=== PATIENT | female | born 1975 | race Caucasian/White ===

== ENCOUNTER 2019-01-30 14:13 | Inpatient (IN) ==
[2019-01-30] MEDS ORDERED: TUSSIONEX PENNKINETIC SUSP PO PRN (14:48)
--- NOTE | 2019-01-30 14:51 | DR.H&P ---
H&P - History & Physical for Day of: H&P Date: 01/30/19 - Chief Complaint Chief Complaint: SOB, Palpitations - History of Present Illness History of Present Illness: the patient is a 43-year-old white female who presents back to the office with complaint of increased shortness of breath with palpitations. States she feels shaky and is wheezing. Does continue to have dyspnea on simple exertion. Patient has had upper respiratory infection 2 weeks. Has been on antibiotics and yesterday was started on by mouth Levaquin 750 mg, prednisone and Xopenex nebulizer treatments. States that insurance is pending on Xopenex and patient has been doing albuterol nebs. Patient states she feels weak. Denies fever. Has nonproductive cough. - Past Medical History Past Medical History: COPD - Past Surgical History Surgical History: Hysterectomy, Other Additional Surgical History: Hernia repair - Family History Family Medical History: Diabetes Mellitus, Hypertension - Social History Does patient currently use any type of tobacco product: Yes Have you used tobacco products in the last 12 months: Yes Type of Tobacco Use: Cigarettes Does any household member use tobacco: No Alcohol Use: None Drug Use: None Risks, benefits, and alternatives of opioids discussed: No Prescription drug monitoring program results: PDMP reviewed and no concerns identified - Review of Systems Constitutional: Weakness, Malaise Eyes: No Symptoms Reported ENT: No Symptoms Reported Respiratory: Cough, SOB with Excertion, Pleuritic Pain, Wheezing Cardiovascular: No Symptoms Reported Gastrointestinal: No Symptoms Reported Genitourinary: No Symptoms Reported Musculoskeletal: No Symptoms Reported Skin: No Symptoms Reported Neurological: No Symptoms Reported Oriented: Normal Eyes: Normal Ear: Normal Nose: Normal Throat: Normal Respiratory: Rhonchi Throughout, Wheezes Throughout Cardiovascular: Normal : Normal Auscultation: Bowel Sounds: Normal Palpation: Normal Tenderness: Normal Skin: Normal Musculoskeletal: Normal Psychiatric: Normal Mood Description: Calm Affect: Normal Speech Pattern: Clear - Assessment/Plan (1) Acute bronchitis with COPD Status: Acute Plan: Labs, CXR, Xopenex inhaler, IV Levaquin - Allergies Allergies/Adverse Reactions: Allergies Allergy/AdvReac Type Severity Reaction Status Date / Time No Known Drug Allergies Allergy Verified 01/30/19 15:51
[2019-01-30 15:37] LABS: BASOPHILS # (AUTO) 0.1 X10^3/uL (0.0-0.1); BASOPHILS % (AUTO) 0.8 % (0.2-1.0); HEMATOCRIT 36.5 % (36.0-47.0); HEMOGLOBIN 12.3 g/dL (12.0-16.0); LYMPHOCYTES # (AUTO) 1.3 X10^3/uL (1.3-2.9); MEAN CORPUSCULAR HGB CONC 33.7 g/dL (33.0-35.0); MEAN CORPUSCULAR VOLUME 88.9 fL (80.0-100.0); MEAN PLATELET VOLUME 7.5 fL (7.4-11.0); MONOCYTES # (AUTO) 0.6 x10^3/uL (0.3-0.8); MONOCYTES % (AUTO) 4.4 % (0.0-13.0); NEUTROPHILS # (AUTO) 10.8 x10^3/uL (2.2-4.8); NEUTROPHILS % (AUTO) 84.8 % (42.0-75.0); PLATELET COUNT 244 X10^3/uL (150.0-450.0); RED BLOOD COUNT 4.11 X10^6/uL (3.5-5.4); RED CELL DISTRIBUTION WIDTH 13.4 % (11.6-16.5); WHITE BLOOD COUNT 12.8 X10^3/uL (3.6-10.0)
[2019-01-30 15:48] LABS: ALBUMIN 4.1 g/dL (3.4-5.0); ALKALINE PHOSPHATASE 64 Units/L (46-116); ASPARTATE AMINO TRANSFERASE 22 Units/L (15-37); BLOOD UREA NITROGEN 7 mg/dL (7-18); CALCIUM 8.6 mg/dL (8.5-10.1); CARBON DIOXIDE 24.9 mmol/L (21-32); CHLORIDE 104 mmol/L (98-107); COR NA(FOR HYPERGLY) 141 mmol/L (136-145); CREATININE 0.98 mg/dL (0.55-1.02); SODIUM 141 mmol/L (136-145); TOTAL PROTEIN 7.6 g/dL (6.4-8.2); eGFR NON BLACK RACES > 60 (>60)
[2019-01-30] MEDS ORDERED: POTASSIUM CHL 40 MEQ/NS 0.45% 500 ML IV PRN (15:58)
[2019-01-30] MEDS ORDERED: K-RIDER 10 MEQ/NS 100 ML 10 MEQ/100 ML BAG IV PRN (15:58)
[2019-01-30] MEDS ORDERED: POTASSIUM CHL 60 MEQ/NS 0.45% 500 ML IV PRN (15:58)
[2019-01-30] MEDS ORDERED: POTASSIUM CHLORIDE LIQ 20 MEQ UDC PO PRN (15:58)
[2019-01-30] MEDS ORDERED: K-DUR TAB 20 MEQ PO PRN (15:58)
[2019-01-30] MEDS ORDERED: MAGNESIUM SULFATE 1 GRAM/100 mL PREMIX 1 GM/100 ML BAG IV PRN (15:58)
[2019-01-30] MEDS ORDERED: KLOR-CON PO PRN (15:58)
[2019-01-30] MEDS ORDERED: MICRO K EXTEN CAP 10 MEQ PO PRN (15:58)
[2019-01-30 16:09] LABS: ALANINE AMINOTRANSFERASE 19 Units/L (12-78)
--- NOTE | 2019-01-30 16:13 | RAD ---
History: Shortness of breath and wheezing for 1 month Study: PA and lateral chest Comparison: None Findings: The lungs are clear and the heart and mediastinum are unremarkable. There is no edema or effusion or congestion. There is mild compression of T7 or T8. Impression: 1. No evidence for acute cardiopulmonary disease 2. Mild compression fracture in the midthoracic spine of unknown age Reported By:
[2019-01-30] MEDS ORDERED: SALINE 3% 15 ML NEB TX NEB ONE (16:24)
[2019-01-30] MEDS: XOPENEX 1.25 MG/3 ML NEBULE NEB SCH ×2 (16:32→21:22)
[2019-01-30] MEDS ORDERED: NS 1/2 1000 ML IV 1,000 ML ONE (16:50)
[2019-01-30] MEDS: NS 1/2 1000 ML IV 1,000 ML IV SCH (17:08)
[2019-01-30] MEDS: ROBITUSSIN DM PO SCH ×2 (17:09→21:27)
[2019-01-30] MEDS: LEVAQUIN PREMIX IV 750 MG 750 MG/150 ML BAG IV SCH (17:09)
[2019-01-30 18:44] VITALS: BMI 23.8
[2019-01-30] MEDS: MILK OF MAGNESIA PO SCH (21:27)
[2019-01-30] MEDS: COLACE CAP 100 MG PO SCH (21:27)
[2019-01-30] MEDS: NICOTINE PATCH TD SCH (22:09)
[2019-01-31] MEDS ORDERED: NS 1/2 1000 ML IV 1,000 ML ONE ×2 (02:10→23:31)
[2019-01-31 05:38] LABS: BASOPHILS % (AUTO) 0.6 % (0.2-1.0); EOSINOPHILS % (AUTO) 0.2 % (0.9-2.9); HEMATOCRIT 32.7 % (36.0-47.0); HEMOGLOBIN 11.3 g/dL (12.0-16.0); LYMPHOCYTES % (AUTO) 30.9 % (21.0-51.0); MEAN CORPUSCULAR HEMOGLOBIN 30.8 pg (27.0-34.0); MEAN CORPUSCULAR HGB CONC 34.5 g/dL (33.0-35.0); MEAN CORPUSCULAR VOLUME 89.4 fL (80.0-100.0); MONOCYTES # (AUTO) 0.4 x10^3/uL (0.3-0.8); NEUTROPHILS # (AUTO) 4.1 x10^3/uL (2.2-4.8); NEUTROPHILS % (AUTO) 62.3 % (42.0-75.0); PLATELET COUNT 189 X10^3/uL (150.0-450.0); RED BLOOD COUNT 3.66 X10^6/uL (3.5-5.4); RED CELL DISTRIBUTION WIDTH 13.4 % (11.6-16.5); WHITE BLOOD COUNT 6.6 X10^3/uL (3.6-10.0)
[2019-01-31 05:58] LABS: ALANINE AMINOTRANSFERASE 14 Units/L (12-78); ALBUMIN 3.1 g/dL (3.4-5.0); ALKALINE PHOSPHATASE 48 Units/L (46-116); ASPARTATE AMINO TRANSFERASE 17 Units/L (15-37); BLOOD UREA NITROGEN 8 mg/dL (7-18); CALCIUM 7.7 mg/dL (8.5-10.1); CARBON DIOXIDE 26.3 mmol/L (21-32); CHLORIDE 107 mmol/L (98-107); COR CA(FOR HYPOALB) 8.4 mg/dL (8.5-10.1); CREATININE 0.77 mg/dL (0.55-1.02); SODIUM 141 mmol/L (136-145); eGFR NON BLACK RACES > 60 (>60)
[2019-01-31] MEDS: NS 1/2 1000 ML IV 1,000 ML IV SCH ×3 (06:40→23:36)
[2019-01-31] MEDS: XOPENEX 1.25 MG/3 ML NEBULE NEB SCH ×4 (08:25→21:01)
[2019-01-31] MEDS: LEVAQUIN PREMIX IV 750 MG 750 MG/150 ML BAG IV SCH (08:27)
[2019-01-31] MEDS: NICOTINE PATCH TD SCH (08:28)
[2019-01-31] MEDS: ROBITUSSIN DM PO SCH ×4 (08:32→20:29)
[2019-01-31] MEDS ORDERED: PREVNAR 13 IM ONE (09:00)
[2019-01-31] MEDS: TOPROL XL PO SCH (09:52)
[2019-01-31] MEDS: ZOLOFT PO SCH ×2 (09:52→20:28)
[2019-01-31] MEDS: PROTONIX INJ 40 MG VIAL IVP SCH (10:23)
[2019-01-31] MEDS: SOLU-Medrol 125 MG VIAL IVP SCH ×3 (10:23→21:10)
[2019-01-31] MEDS: CARAFATE ORAL SUSP PO SCH ×3 (12:57→20:29)
--- NOTE | 2019-01-31 13:20 | CT ---
History: Shortness of breath and wheezing for 1 month Study: CT chest utilizing 100 mL Omnipaque 350 IV contrast. Sagittal and coronal reformations were provided. Axial MIPS were performed. Dose reduction techniques were utilized. Comparison: None Findings: The lungs are grossly clear except for a 1 cm nodule at the left lung base with central calcification. There is no pleural effusion. There is no lung consolidation. There is no adenopathy. There is no pericardial effusion. No pulmonary embolus is demonstrated. The aorta is unremarkable. The partially visualized upper abdomen is unremarkable. There is mild anterior wedging of the superior endplate of T7. There are mild T7-8 and T8-9 degenerative osteophytes. Impression: 1. 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 Mild T7 compression fracture, probably old 3. No acute cardiopulmonary disease demonstrated Reported By:
[2019-01-31] MEDS: COLACE CAP 100 MG PO SCH (20:28)
[2019-01-31] MEDS: MILK OF MAGNESIA PO SCH (20:29)
[2019-02-01] MEDS: CARAFATE ORAL SUSP PO SCH (05:47)
[2019-02-01] MEDS: SOLU-Medrol 125 MG VIAL IVP SCH (05:47)
[2019-02-01 06:15] LABS: BASOPHILS % (AUTO) 0.1 % (0.2-1.0); HEMATOCRIT 35.8 % (36.0-47.0); HEMOGLOBIN 12.3 g/dL (12.0-16.0); LYMPHOCYTES # (AUTO) 0.8 X10^3/uL (1.3-2.9); LYMPHOCYTES % (AUTO) 7.7 % (21.0-51.0); MEAN CORPUSCULAR HEMOGLOBIN 30.5 pg (27.0-34.0); MEAN CORPUSCULAR HGB CONC 34.3 g/dL (33.0-35.0); MEAN CORPUSCULAR VOLUME 88.9 fL (80.0-100.0); MEAN PLATELET VOLUME 7.5 fL (7.4-11.0); MONOCYTES # (AUTO) 0.4 x10^3/uL (0.3-0.8); MONOCYTES % (AUTO) 4.1 % (0.0-13.0); NEUTROPHILS # (AUTO) 9.1 x10^3/uL (2.2-4.8); NEUTROPHILS % (AUTO) 88.1 % (42.0-75.0); PLATELET COUNT 227 X10^3/uL (150.0-450.0); RED BLOOD COUNT 4.03 X10^6/uL (3.5-5.4); RED CELL DISTRIBUTION WIDTH 13.6 % (11.6-16.5); WHITE BLOOD COUNT 10.3 X10^3/uL (3.6-10.0)
[2019-02-01 06:29] LABS: ALANINE AMINOTRANSFERASE 18 Units/L (12-78); ALBUMIN 3.8 g/dL (3.4-5.0); ALKALINE PHOSPHATASE 59 Units/L (46-116); ASPARTATE AMINO TRANSFERASE 15 Units/L (15-37); BLOOD UREA NITROGEN 7 mg/dL (7-18); CALCIUM 8.8 mg/dL (8.5-10.1); CARBON DIOXIDE 24.3 mmol/L (21-32); CHLORIDE 103 mmol/L (98-107); COR NA(FOR HYPERGLY) 138 mmol/L (136-145); CREATININE 0.75 mg/dL (0.55-1.02); SODIUM 137 mmol/L (136-145); eGFR NON BLACK RACES > 60 (>60)
[2019-02-01] MEDS: XOPENEX 1.25 MG/3 ML NEBULE NEB SCH (08:59)
[2019-02-01] MEDS: LEVAQUIN PREMIX IV 750 MG 750 MG/150 ML BAG IV SCH (09:18)
[2019-02-01] MEDS: NS 1/2 1000 ML IV 1,000 ML IV SCH (09:18)
[2019-02-01] MEDS: NICOTINE PATCH TD SCH (09:18)
[2019-02-01] MEDS: PROTONIX INJ 40 MG VIAL IVP SCH (09:19)
[2019-02-01] MEDS: TOPROL XL PO SCH (09:19)
[2019-02-01] MEDS: ZOLOFT PO SCH (09:19)
[2019-02-01] MEDS: ROBITUSSIN DM PO SCH (09:19)
[2019-02-01 12:05] VITALS: BP 125/56
== END 2019-02-01 11:55 | disposition home or self-care (01) | DRG 203 ==
LOC: MED/SURG 15:09
PROVIDERS: ADMIT Internal Medicine; ATTEND Internal Medicine
DX: R06.02 Shortness of breath; K21.9 Gastro-esophageal reflux disease without esophagitis; Z23 Encounter for immunization; J20.8 Acute bronchitis due to other specified organisms; F41.8 Other specified anxiety disorders; J44.9 Chronic obstructive pulmonary disease, unspecified
CPT/HCPCS: 36415; 71020; 71046; 71260; 80053; 83735; 84132; 85025; 87040; 87070; 87205; 94640; 94760; A4222; C9113; 90670; J1956; J2930

== ENCOUNTER 2019-03-25 16:13 | Observation (INO) ==
[2019-03-25] MEDS ORDERED: TUSSIONEX PENNKINETIC SUSP PO PRN (17:12)
--- NOTE | 2019-03-25 17:16 | DR.H&P ---
H&P - History & Physical for Day of: H&P Date: 03/25/19 - Chief Complaint Chief Complaint: Cough, Congestion and SOB - History of Present Illness History of Present Illness: The patient is a 43-year-old white female who presents to the office secondary to complaints of cough and congestion shortness of breath. Patient states cough is congested but is not able to cough anything up. States she has been running fevers at home. States that she is using inhalers but is unable to tolerate the albuterol due to tachycardia. Patient denies sinus congestion. Does state that she seldom smokes or vapes. Does state while he was talking will increase her shortness of breath and coughing.Does complain of seeing blood in the urine. States she is having lower abdominal pain with increased discomfort and difficulty with urination. Does state that sex is painful. Urinalysis is showing positive for 2+ blood. Patient was previously treated with clindamycin for vaginal BV with minimal improvement of symptoms. - Past Medical History Past Medical History: COPD - Past Surgical History Surgical History: Hysterectomy, Other Additional Surgical History: Hernia repair - Family History Family Medical History: Diabetes Mellitus, Hypertension - Social History Does patient currently use any type of tobacco product: Yes Have you used tobacco products in the last 12 months: Yes Type of Tobacco Use: Cigarettes Does any household member use tobacco: Yes Alcohol Use: None Drug Use: None Risks, benefits, and alternatives of opioids discussed: Yes Prescription drug monitoring program results: PDMP reviewed and no concerns identified - Medications Home Medications: No Known Drug Allergies Allergy (Verified 01/30/19 15:51) CONTINUE taking the following medications estradiol 2 mg PO DAILY 03/25/19 [History] levothyroxine 25 mcg PO DAILY 03/25/19 [History] paroxetine HCl 10 mg PO DAILY 03/25/19 [History] - Review of Systems Constitutional: Malaise Eyes: No Symptoms Reported ENT: No Symptoms Reported Respiratory: Cough, SOB with Excertion, Pleuritic Pain, Wheezing Cardiovascular: No Symptoms Reported Gastrointestinal: No Symptoms Reported Genitourinary: No Symptoms Reported Musculoskeletal: No Symptoms Reported Skin: No Symptoms Reported Neurological: No Symptoms Reported - Physical Exam Vital Signs: Blood Pressure [Right Arm] 125/56 Oriented: Normal Eyes: Normal Ear: Normal Nose: Normal Throat: Normal Respiratory: Rhonchi Throughout, Wheezes Throughout Cardiovascular: Tachycardia : Normal Auscultation: Bowel Sounds: Normal Palpation: Normal Tenderness: Normal Skin: Normal Musculoskeletal: Normal Psychiatric: Normal Mood Description: Calm Affect: Normal Speech Pattern: Clear - Assessment/Plan (1) COPD with acute exacerbation Status: Acute Plan: CXR, IV Antibiotics, Steroids, NEbs (2) Acute bronchitis with COPD Status: Acute Plan: CXR, IV Antibiotics, Steriods, Nebs - Allergies Allergies/Adverse Reactions: Allergies Allergy/AdvReac Type Severity Reaction Status Date / Time No Known Drug Allergies Allergy Verified 01/30/19 15:51
[2019-03-25] MEDS ORDERED: NS 1/2 1000 ML IV 1,000 ML IV ONE (17:27)
[2019-03-25] MEDS ORDERED: ROCEPHIN VIAL 1 GRAM ONE (17:28)
[2019-03-25] MEDS: NS 1/2 1000 ML IV 1,000 ML IV SCH (17:30)
[2019-03-25] MEDS: ROCEPHIN VIAL 1 GRAM 1 G in NS 100 ML IV + SPIKE MINIBAG* 100 ML IV SCH (17:30)
[2019-03-25 17:41] VITALS: BMI 24.1
[2019-03-25 18:01] LABS: BASOPHILS % (AUTO) 0.6 % (0.2-1.0); EOSINOPHILS # (AUTO) 0.1 x10^3/uL (0.0-0.2); EOSINOPHILS % (AUTO) 1.1 % (0.9-2.9); HEMATOCRIT 35.6 % (36.0-47.0); HEMOGLOBIN 12.4 g/dL (12.0-16.0); LYMPHOCYTES # (AUTO) 2.1 X10^3/uL (1.3-2.9); MEAN CORPUSCULAR HEMOGLOBIN 30.5 pg (27.0-34.0); MEAN CORPUSCULAR HGB CONC 34.8 g/dL (33.0-35.0); MEAN CORPUSCULAR VOLUME 87.8 fL (80.0-100.0); MEAN PLATELET VOLUME 7.1 fL (7.4-11.0); MONOCYTES # (AUTO) 0.4 x10^3/uL (0.3-0.8); MONOCYTES % (AUTO) 5.4 % (0.0-13.0); NEUTROPHILS % (AUTO) 60.9 % (42.0-75.0); PLATELET COUNT 270 X10^3/uL (150.0-450.0); RED BLOOD COUNT 4.06 X10^6/uL (3.5-5.4); RED CELL DISTRIBUTION WIDTH 12.9 % (11.6-16.5); WHITE BLOOD COUNT 6.6 X10^3/uL (3.6-10.0)
[2019-03-25 18:13] LABS: ALANINE AMINOTRANSFERASE 23 Units/L (12-78); ALKALINE PHOSPHATASE 66 Units/L (46-116); ASPARTATE AMINO TRANSFERASE 16 Units/L (15-37); BLOOD UREA NITROGEN 8 mg/dL (7-18); CALCIUM 8.7 mg/dL (8.5-10.1); CARBON DIOXIDE 26.3 mmol/L (21-32); CHLORIDE 103 mmol/L (98-107); SODIUM 139 mmol/L (136-145); TOTAL PROTEIN 7.2 g/dL (6.4-8.2); eGFR NON BLACK RACES > 60 (>60)
[2019-03-25] MEDS: XOPENEX 1.25 MG/3 ML NEBULE NEB SCH (18:38)
--- NOTE | 2019-03-25 19:32 | RAD ---
History: Cough Exam: Portable chest Comparison: 01/30/2019 Technique: A portable AP chest was obtained. Findings: The heart is normal. The pulmonary vessels are normal. The lungs are mildly hyperinflated and emphysematous. No consolidation or effusion is seen. The bones are intact. IMPRESSION: Stable chronic changes with no acute abnormality seen. Reported By:
[2019-03-25] MEDS ORDERED: NICOTINE PATCH TD ONE (19:44)
[2019-03-25] MEDS: PULMICORT NEB TX 0.5 MG NEB SCH (20:50)
[2019-03-25] MEDS ORDERED: XOPENEX 1.25 MG/3 ML NEBULE NEB SCH (21:00)
[2019-03-25] MEDS: NICOTINE PATCH TD SCH (21:08)
[2019-03-25] MEDS: VIBRAMYCIN 100 MG in NS 100 ML IV + SPIKE MINIBAG* 100 ML IV SCH (21:09)
[2019-03-25] MEDS: ROBITUSSIN DM PO SCH (21:09)
[2019-03-25 21:10] LABS: BILIRUBIN,URINE NEGATIVE (NEGATIVE); BLOOD/HEMOGLOBIN,URINE 3+ (NEGATIVE); GLUCOSE, URINE NEGATIVE (NEGATIVE); KETONES,URINE NEGATIVE (NEGATIVE); LEUKOCYTE ESTERASE ,URINE NEGATIVE (NEGATIVE); NITRITES,URINE NEGATIVE (NEGATIVE); PROTEIN,URINE NEGATIVE (NEGATIVE); UROBILINOGEN,URINE NORMAL (NORMAL)
[2019-03-25 21:12] LABS: APPEARANCE,URINE CLEAR (CLEAR); COLOR,URINE YELLOW (YELLOW)
[2019-03-25 21:13] LABS: BACTERIA,URINE TRACE /HPF (NEGATIVE); SQUAMOUS EPITHELIAL CELL,UR FEW /HPF (NEGATIVE)
[2019-03-25] MEDS: SOLU-Medrol 125 MG VIAL IVP SCH (21:37)
[2019-03-25] MEDS: ZOFRAN INJ 4 MG VIAL IVP PRN (21:56)
[2019-03-26] MEDS: XOPENEX 1.25 MG/3 ML NEBULE NEB SCH ×4 (01:00→17:13)
[2019-03-26] MEDS ORDERED: NS 1/2 1000 ML IV 1,000 ML IV ONE (05:06)
[2019-03-26] MEDS: SOLU-Medrol 125 MG VIAL IVP SCH ×3 (05:09→21:01)
[2019-03-26] MEDS: ZOFRAN INJ 4 MG VIAL IVP PRN (07:18)
[2019-03-26] MEDS: PULMICORT NEB TX 0.5 MG NEB SCH ×2 (08:37→20:50)
[2019-03-26] MEDS: ROBITUSSIN DM PO SCH ×4 (08:42→20:56)
[2019-03-26] MEDS: NICOTINE PATCH TD SCH (08:42)
[2019-03-26] MEDS: ROCEPHIN VIAL 1 GRAM 1 G in NS 100 ML IV + SPIKE MINIBAG* 100 ML IV SCH (08:43)
[2019-03-26] MEDS: VIBRAMYCIN 100 MG in NS 100 ML IV + SPIKE MINIBAG* 100 ML IV SCH ×2 (08:44→20:56)
[2019-03-26] MEDS: NS 1/2 1000 ML IV 1,000 ML IV SCH (08:45)
[2019-03-26] MEDS ORDERED: SALINE 3% 15 ML NEB TX NEB ONE (08:53)
[2019-03-26] MEDS: FLAGYL IV PREMIX 500 MG BAG 500 MG/100 ML BAG IV SCH ×3 (08:56→22:22)
[2019-03-26] MEDS ORDERED: PROTONIX INJ 40 MG VIAL IVP SCH (10:00)
[2019-03-26] MEDS: NORCO 5/325 MG TAB PO PRN ×2 (10:57→17:39)
[2019-03-26] MEDS ORDERED: K-RIDER 10 MEQ/NS 100 ML 10 MEQ/100 ML BAG IV PRN (15:11)
[2019-03-26] MEDS ORDERED: KLOR-CON PO PRN (15:11)
[2019-03-26] MEDS ORDERED: K-DUR TAB 20 MEQ PO PRN (15:11)
[2019-03-26] MEDS ORDERED: POTASSIUM CHL 60 MEQ/NS 0.45% 500 ML IV PRN (15:11)
[2019-03-26] MEDS ORDERED: POTASSIUM CHLORIDE LIQ 20 MEQ UDC PO PRN (15:11)
[2019-03-26] MEDS ORDERED: MICRO K EXTEN CAP 10 MEQ PO PRN (15:11)
[2019-03-26] MEDS ORDERED: POTASSIUM CHL 40 MEQ/NS 0.45% 500 ML IV PRN (15:11)
[2019-03-26] MEDS ORDERED: PROTONIX TAB 40 MG PO SCH (15:30)
[2019-03-26] MEDS ORDERED: MAGNESIUM SULFATE 1 GRAM/100 mL PREMIX 2 G/200 ML BAG IV ONE (16:29)
[2019-03-26] MEDS: MAGNESIUM SULFATE 1 GRAM/100 mL PREMIX 1 GM/100 ML BAG IV PRN ×2 (16:38→17:38)
[2019-03-26] MEDS: ZOLOFT PO SCH (20:55)
[2019-03-26] MEDS ORDERED: COLACE CAP 100 MG PO SCH (21:00)
[2019-03-27] MEDS: XOPENEX 1.25 MG/3 ML NEBULE NEB SCH ×2 (00:13→05:27)
[2019-03-27] MEDS: FLAGYL IV PREMIX 500 MG BAG 500 MG/100 ML BAG IV SCH ×2 (03:14→08:38)
[2019-03-27] MEDS: NS 1/2 1000 ML IV 1,000 ML IV SCH ×2 (03:14→06:17)
[2019-03-27 05:14] LABS: BASOPHILS % (AUTO) 0.2 % (0.2-1.0); HEMATOCRIT 33.5 % (36.0-47.0); HEMOGLOBIN 11.2 g/dL (12.0-16.0); LYMPHOCYTES # (AUTO) 0.7 X10^3/uL (1.3-2.9); LYMPHOCYTES % (AUTO) 5.1 % (21.0-51.0); MEAN CORPUSCULAR HGB CONC 33.5 g/dL (33.0-35.0); MEAN CORPUSCULAR VOLUME 89.6 fL (80.0-100.0); MEAN PLATELET VOLUME 7.6 fL (7.4-11.0); MONOCYTES # (AUTO) 0.4 x10^3/uL (0.3-0.8); MONOCYTES % (AUTO) 2.7 % (0.0-13.0); NEUTROPHILS # (AUTO) 12.4 x10^3/uL (2.2-4.8); PLATELET COUNT 235 X10^3/uL (150.0-450.0); RED BLOOD COUNT 3.74 X10^6/uL (3.5-5.4); WHITE BLOOD COUNT 13.5 X10^3/uL (3.6-10.0)
[2019-03-27 05:27] LABS: PLATELET MORPHOLOGY COMMENT NORMAL (NORMAL)
[2019-03-27 05:29] LABS: ALANINE AMINOTRANSFERASE 19 Units/L (12-78); ALBUMIN 3.4 g/dL (3.4-5.0); ALKALINE PHOSPHATASE 51 Units/L (46-116); ASPARTATE AMINO TRANSFERASE 11 Units/L (15-37); BLOOD UREA NITROGEN 7 mg/dL (7-18); CALCIUM 8.1 mg/dL (8.5-10.1); CARBON DIOXIDE 23.9 mmol/L (21-32); CHLORIDE 105 mmol/L (98-107); COR NA(FOR HYPERGLY) 139 mmol/L (136-145); CREATININE 0.66 mg/dL (0.55-1.02); SODIUM 138 mmol/L (136-145); TOTAL PROTEIN 6.2 g/dL (6.4-8.2); eGFR NON BLACK RACES > 60 (>60)
[2019-03-27] MEDS ORDERED: NS 1/2 1000 ML IV 1,000 ML IV ONE (05:51)
[2019-03-27] MEDS: NORCO 5/325 MG TAB PO PRN (06:18)
[2019-03-27] MEDS: SOLU-Medrol 125 MG VIAL IVP SCH (06:18)
[2019-03-27] MEDS ORDERED: TORADOL 30 MG VIAL IVP ONE (08:05)
[2019-03-27] MEDS: ROCEPHIN VIAL 1 GRAM 1 G in NS 100 ML IV + SPIKE MINIBAG* 100 ML IV SCH (08:36)
[2019-03-27] MEDS: ROBITUSSIN DM PO SCH ×2 (08:37→14:22)
[2019-03-27] MEDS: NICOTINE PATCH TD SCH (08:37)
[2019-03-27] MEDS: PULMICORT NEB TX 0.5 MG NEB SCH (08:40)
[2019-03-27] MEDS: ZOLOFT PO SCH (08:59)
[2019-03-27] MEDS ORDERED: PROTONIX TAB 40 MG PO SCH (09:00)
[2019-03-27] MEDS ORDERED: SYNTHROID 25 mcg TAB PO SCH (09:00)
[2019-03-27] MEDS ORDERED: ESTRACE PO SCH (09:00)
[2019-03-27] MEDS ORDERED: PAXIL PO SCH (09:00)
[2019-03-27] MEDS: VIBRAMYCIN 100 MG in NS 100 ML IV + SPIKE MINIBAG* 100 ML IV SCH (09:01)
--- NOTE | 2019-03-27 11:02 | RAD ---
HISTORY: Abdominal distension Study: Flat and upright abdomen, PA chest Comparison: 03/25/2019 Findings: The heart is mildly enlarged. No congestive heart failure is noted. No acute alveolar infiltrates or pleural effusions are identified. Mild interstitial lung changes are present. The abdominal gas pattern is nonspecific and nonobstructive. No pneumoperitoneum is identified. There is a moderately large amount of stool within the colon is suspicious for some element of constipation. IMPRESSION: No acute abnormality Possible constipation Mild cardiomegaly without congestive heart failure Mild interstitial lung changes Reported By:
[2019-03-27 12:28] LABS: BILIRUBIN,URINE NEGATIVE (NEGATIVE); BLOOD/HEMOGLOBIN,URINE 2+ (NEGATIVE); GLUCOSE, URINE NEGATIVE (NEGATIVE); KETONES,URINE NEGATIVE (NEGATIVE); LEUKOCYTE ESTERASE ,URINE 1+ (NEGATIVE); NITRITES,URINE NEGATIVE (NEGATIVE); PROTEIN,URINE NEGATIVE (NEGATIVE); UROBILINOGEN,URINE NORMAL (NORMAL)
[2019-03-27 12:37] LABS: APPEARANCE,URINE CLEAR (CLEAR); BACTERIA,URINE NEGATIVE /HPF (NEGATIVE); COLOR,URINE YELLOW (YELLOW); RBC,URINE 0-2 /HPF (0-3); SQUAMOUS EPITHELIAL CELL,UR RARE /HPF (NEGATIVE)
[2019-03-27 13:27] VITALS: BP 117/70
== END 2019-03-27 14:20 | disposition home or self-care (01) ==
LOC: MED/SURG
PROVIDERS: ADMIT Internal Medicine; ATTEND Internal Medicine
DX: K59.09 Other constipation; J44.1 Chronic obstructive pulmonary disease with (acute) exacerbation; J20.9 Acute bronchitis, unspecified; N39.0 Urinary tract infection, site not specified; J44.0 Chronic obstructive pulmonary disease with (acute) lower respiratory infection; R31.9 Hematuria, unspecified; K21.9 Gastro-esophageal reflux disease without esophagitis; R06.02 Shortness of breath; A56.11 Chlamydial female pelvic inflammatory disease
CPT/HCPCS: 36415; 71010; 71045; 74022; 80053; 81001; 83735; 85025; 87040; 87070; 87086; 87205; 94640; 94760; 96367; 96374; A4222; C9113; S0030; G0378; J0696; J1885; J2405; J2930; J3475; J3490; J7050; J7626

== ENCOUNTER 2020-09-06 15:43 | Observation (INO) ==
[2020-09-06] MEDS ORDERED: TUSSIONEX PENNKINETIC SUSP PO PRN (17:26)
--- NOTE | 2020-09-06 18:06 | RAD ---
CHEST, PA/LAT ADULTHISTORY: PNEUMONIAStudy: PA and lateral views of the chest.Comparison:NoneFindings:The cardiomediastinal silhouette is normal.No focal consolidations, pleural effusions or pneumothorax. Osseous structures demonstrate no acute abnormality.IMPRESSION:1. No acute cardiopulmonary process.Electronically signed by: MAICO CLAUDIO (Sep 06, 2020 18:04:27)
[2020-09-06 18:11] LABS: BASOPHILS # (AUTO) 0.1 X10^3/uL (0.0-0.1); BASOPHILS % (AUTO) 1.1 % (0.2-1.0); EOSINOPHILS # (AUTO) 0.1 x10^3/uL (0.0-0.2); HEMATOCRIT 35.3 % (36.0-47.0); HEMOGLOBIN 11.8 g/dL (12.0-16.0); LYMPHOCYTES # (AUTO) 1.7 X10^3/uL (1.3-2.9); LYMPHOCYTES % (AUTO) 24.9 % (21.0-51.0); MEAN CORPUSCULAR HEMOGLOBIN 28.2 pg (27.0-34.0); MEAN CORPUSCULAR HGB CONC 33.5 g/dL (33.0-35.0); MEAN CORPUSCULAR VOLUME 84.1 fL (80.0-100.0); MEAN PLATELET VOLUME 6.9 fL (7.4-11.0); MONOCYTES # (AUTO) 0.3 x10^3/uL (0.3-0.8); MONOCYTES % (AUTO) 4.4 % (0.0-13.0); NEUTROPHILS # (AUTO) 4.8 x10^3/uL (2.2-4.8); NEUTROPHILS % (AUTO) 68.6 % (42.0-75.0); PLATELET COUNT 536 X10^3/uL (150.0-450.0); RED CELL DISTRIBUTION WIDTH 14.2 % (11.6-16.5)
[2020-09-06 18:12] VITALS: BMI 24.5
[2020-09-06 18:21] LABS: ALANINE AMINOTRANSFERASE 20 Units/L (12-78); ALBUMIN 3.9 g/dL (3.4-5.0); ALKALINE PHOSPHATASE 94 Units/L (46-116); ASPARTATE AMINO TRANSFERASE 15 Units/L (15-37); BLOOD UREA NITROGEN 6 mg/dL (7-18); CALCIUM 9.2 mg/dL (8.5-10.1); CARBON DIOXIDE 29.6 mmol/L (21-32); CHLORIDE 103 mmol/L (98-107); CREATININE 0.87 mg/dL (0.55-1.02); SODIUM 140 mmol/L (136-145); eGFR NON BLACK RACES > 60 (>60)
[2020-09-06] MEDS ORDERED: NS 1/2 1000 ML IV 1,000 ML IV ONE (18:48)
[2020-09-06] MEDS: NS 1/2 1000 ML IV 1,000 ML IV SCH (18:59)
[2020-09-06] MEDS: ROCEPHIN 1 GRAM IV PREMIX 1 G/50 ML IV.SOLN. IV SCH (18:59)
[2020-09-06] MEDS: VIBRAMYCIN 100 MG in NS 100 ML IV + SPIKE MINIBAG* 100 ML IV SCH (19:50)
[2020-09-06] MEDS ORDERED: SALINE 3% 15 ML NEB TX ONE (20:19)
[2020-09-06] MEDS ORDERED: SALINE 3% 15 ML NEB TX NEB ONE (20:30)
[2020-09-06] MEDS: PROVENTIL NEB TX 0.083% 2.5MG/ 3ML NEB SCH (21:00)
[2020-09-06] MEDS: PULMICORT NEB TX 0.5 MG NEB SCH (21:00)
--- NOTE | 2020-09-06 22:12 | DR.H&P ---
H&P - History & Physical for Day of: H&P Date: 09/06/20 - Chief Complaint Chief Complaint: Shortness of breath, cough and congestion - History of Present Illness History of Present Illness: The patient is a 44-year-old white female who presents [facility] with complaint of increasing shortness of breath with cough and congestion. the patient did go to the emergency room 08/26/20 [facility] with chest x-ray revealing hazy opacities consistent with viral or atypical pneumonia to lung [place]. patient has been on Ceftin and prednisone. States she is doing and albuterol neb treatments every 2 hours. States that she gets short of breath trying to walk across the room. States she was swabbed for Covid and was negative. Cough is nonproductive. Patient denies fever. Patient states that her sinuses are stopped up. States the pollen has aggravated. Does continue to use tobacco. No other complaints voiced. - Past Medical History Past Medical History: Depression, Anxiety, COPD - Past Surgical History Surgical History: Hysterectomy, Ortho Surgery, Other Additional Surgical History: Hernia repair - Family History Family Medical History: Diabetes Mellitus, Cancer, [place], Hypertension - Social History Does patient currently use any type of tobacco product: Yes Have you used tobacco products in the last 12 months: Yes Type of Tobacco Use: Cigarettes Does any household member use tobacco: Yes Alcohol Use: None Drug Use: None Risks, benefits, and alternatives of opioids discussed: No Prescription drug monitoring program results: PDMP reviewed and no concerns identified - Medications Home Medications: No Known Drug Allergies Allergy (Verified 08/26/20 17:04) - Review of Systems Constitutional: See HPI, Malaise Eyes: No Symptoms Reported ENT: Nose Congestion Respiratory: Cough, Shortness of Breath, SOB with Excertion, Pleuritic Pain, Wheezing Cardiovascular: No Symptoms Reported Gastrointestinal: No Symptoms Reported Genitourinary: No Symptoms Reported Musculoskeletal: No Symptoms Reported Skin: No Symptoms Reported Neurological: No Symptoms Reported - Physical Exam Vital Signs: Temperature 97.7 F Pulse Rate [Left Radial] 85 Pulse Rate 80 Respiratory Rate 20 Blood Pressure [Right Arm] 133/61 Blood Pressure 143/78 O2 Sat by Pulse Oximetry 99 Oriented: Normal Eyes: Normal Ear: Normal Nose: Normal Throat: Normal Respiratory: Rhonchi Throughout (And COARSE) Cardiovascular: Normal : Normal Auscultation: Bowel Sounds: Normal Palpation: Normal Tenderness: Normal Skin: Normal Musculoskeletal: Normal Psychiatric: Normal Mood Description: Calm Affect: Flat Speech Pattern: Clear - Assessment/Plan (1) COPD with acute exacerbation Status: Acute Plan: IV antibiotics, Labs, CXR, Nebs (2) Pneumonia Status: Acute Plan: IV antibiotics, Nebs, CXR - Allergies Allergies/Adverse Reactions: Allergies Allergy/AdvReac Type Severity Reaction Status Date / Time No Known Drug Allergies Allergy Verified 08/26/20 17:04
[2020-09-06] MEDS: ROBITUSSIN DM PO SCH (22:20)
[2020-09-06] MEDS: ZOLOFT PO SCH (23:49)
[2020-09-07] MEDS: VIBRAMYCIN 100 MG in NS 100 ML IV + SPIKE MINIBAG* 100 ML IV SCH ×3 (00:19→21:00)
[2020-09-07] MEDS: NEURONTIN TAB 600 MG PO SCH ×3 (05:28→21:03)
[2020-09-07] MEDS: PROVENTIL NEB TX 0.083% 2.5MG/ 3ML NEB SCH ×6 (05:42→20:43)
[2020-09-07 06:08] LABS: BASOPHILS % (AUTO) 0.6 % (0.2-1.0); EOSINOPHILS # (AUTO) 0.1 x10^3/uL (0.0-0.2); EOSINOPHILS % (AUTO) 1.3 % (0.9-2.9); HEMOGLOBIN 10.5 g/dL (12.0-16.0); LYMPHOCYTES # (AUTO) 1.4 X10^3/uL (1.3-2.9); LYMPHOCYTES % (AUTO) 29.2 % (21.0-51.0); MEAN CORPUSCULAR HEMOGLOBIN 28.6 pg (27.0-34.0); MEAN CORPUSCULAR HGB CONC 33.7 g/dL (33.0-35.0); MEAN CORPUSCULAR VOLUME 84.8 fL (80.0-100.0); MEAN PLATELET VOLUME 7.1 fL (7.4-11.0); MONOCYTES # (AUTO) 0.4 x10^3/uL (0.3-0.8); MONOCYTES % (AUTO) 7.5 % (0.0-13.0); NEUTROPHILS % (AUTO) 61.4 % (42.0-75.0); PLATELET COUNT 355 X10^3/uL (150.0-450.0); RED BLOOD COUNT 3.65 X10^6/uL (3.5-5.4); RED CELL DISTRIBUTION WIDTH 14.1 % (11.6-16.5); WHITE BLOOD COUNT 4.9 X10^3/uL (3.6-10.0)
[2020-09-07 06:19] LABS: ALANINE AMINOTRANSFERASE 17 Units/L (12-78); ALBUMIN 3.1 g/dL (3.4-5.0); ALKALINE PHOSPHATASE 76 Units/L (46-116); ASPARTATE AMINO TRANSFERASE 12 Units/L (15-37); BLOOD UREA NITROGEN 5 mg/dL (7-18); CALCIUM 8.4 mg/dL (8.5-10.1); CARBON DIOXIDE 27.8 mmol/L (21-32); CHLORIDE 108 mmol/L (98-107); COR CA(FOR HYPOALB) 9.1 mg/dL (8.5-10.1); CREATININE 0.82 mg/dL (0.55-1.02); SODIUM 144 mmol/L (136-145); TOTAL PROTEIN 6.4 g/dL (6.4-8.2); eGFR NON BLACK RACES > 60 (>60)
[2020-09-07] MEDS: FLOMAX PO SCH (09:00)
[2020-09-07] MEDS: PATIENT'S HOME MEDICATION (Duloxetine 20 mg capsule,delayed release(DR/EC)) PO SCH ×2 (09:00→21:00)
[2020-09-07] MEDS: ROBITUSSIN DM PO SCH ×4 (09:01→21:00)
[2020-09-07] MEDS: NS 1/2 1000 ML IV 1,000 ML IV SCH ×2 (09:03→11:30)
[2020-09-07] MEDS: ROCEPHIN 1 GRAM IV PREMIX 1 G/50 ML IV.SOLN. IV SCH (09:03)
[2020-09-07] MEDS: PULMICORT NEB TX 0.5 MG NEB SCH ×2 (09:50→20:43)
[2020-09-07 09:52] LABS: ABG BASE EXCESS 1.1 mmol/L (-2.0-2.0); ABG HCO3 25.1 mmol/L (22-26)
[2020-09-07] MEDS ORDERED: NS 1/2 1000 ML IV 1,000 ML IV ONE (11:20)
[2020-09-07] MEDS ORDERED: ABILIFY PO SCH (21:00)
[2020-09-07] MEDS: ZOLOFT PO SCH (21:00)
[2020-09-08] MEDS: NS 1/2 1000 ML IV 1,000 ML IV SCH ×3 (01:45→13:32)
[2020-09-08] MEDS: PROVENTIL NEB TX 0.083% 2.5MG/ 3ML NEB SCH ×4 (01:45→13:00)
[2020-09-08] MEDS ORDERED: NS 1/2 1000 ML IV 1,000 ML IV ONE (03:43)
[2020-09-08] MEDS: NEURONTIN TAB 600 MG PO SCH ×2 (05:30→14:13)
[2020-09-08 06:00] LABS: ALANINE AMINOTRANSFERASE 15 Units/L (12-78); ALBUMIN 3.1 g/dL (3.4-5.0); ALKALINE PHOSPHATASE 75 Units/L (46-116); ASPARTATE AMINO TRANSFERASE 10 Units/L (15-37); BLOOD UREA NITROGEN 8 mg/dL (7-18); CALCIUM 8.5 mg/dL (8.5-10.1); CARBON DIOXIDE 25.4 mmol/L (21-32); CHLORIDE 108 mmol/L (98-107); COR CA(FOR HYPOALB) 9.2 mg/dL (8.5-10.1); CREATININE 0.89 mg/dL (0.55-1.02); SODIUM 144 mmol/L (136-145); TOTAL PROTEIN 6.2 g/dL (6.4-8.2); eGFR NON BLACK RACES > 60 (>60)
[2020-09-08 06:01] LABS: BASOPHILS # (AUTO) 0.1 X10^3/uL (0.0-0.1); BASOPHILS % (AUTO) 1.1 % (0.2-1.0); EOSINOPHILS # (AUTO) 0.1 x10^3/uL (0.0-0.2); EOSINOPHILS % (AUTO) 1.2 % (0.9-2.9); HEMATOCRIT 30.9 % (36.0-47.0); HEMOGLOBIN 10.3 g/dL (12.0-16.0); LYMPHOCYTES # (AUTO) 1.4 X10^3/uL (1.3-2.9); LYMPHOCYTES % (AUTO) 29.9 % (21.0-51.0); MEAN CORPUSCULAR HEMOGLOBIN 28.3 pg (27.0-34.0); MEAN CORPUSCULAR HGB CONC 33.4 g/dL (33.0-35.0); MEAN CORPUSCULAR VOLUME 84.8 fL (80.0-100.0); MEAN PLATELET VOLUME 7.1 fL (7.4-11.0); MONOCYTES # (AUTO) 0.3 x10^3/uL (0.3-0.8); MONOCYTES % (AUTO) 5.4 % (0.0-13.0); NEUTROPHILS # (AUTO) 2.9 x10^3/uL (2.2-4.8); NEUTROPHILS % (AUTO) 62.4 % (42.0-75.0); PLATELET COUNT 352 X10^3/uL (150.0-450.0); RED BLOOD COUNT 3.64 X10^6/uL (3.5-5.4); RED CELL DISTRIBUTION WIDTH 14.3 % (11.6-16.5); WHITE BLOOD COUNT 4.7 X10^3/uL (3.6-10.0)
[2020-09-08] MEDS: PATIENT'S HOME MEDICATION (Duloxetine 20 mg capsule,delayed release(DR/EC)) PO SCH (09:19)
[2020-09-08] MEDS: ROCEPHIN 1 GRAM IV PREMIX 1 G/50 ML IV.SOLN. IV SCH (09:20)
[2020-09-08] MEDS: FLOMAX PO SCH (09:20)
[2020-09-08] MEDS: ROBITUSSIN DM PO SCH ×2 (09:21→14:13)
[2020-09-08] MEDS: VIBRAMYCIN 100 MG in NS 100 ML IV + SPIKE MINIBAG* 100 ML IV SCH (09:21)
[2020-09-08] MEDS: PULMICORT NEB TX 0.5 MG NEB SCH (09:30)
--- NOTE | 2020-09-08 09:59 | RAD ---
HISTORYCOPD, HX PNEUMONIASTUDYCHEST, 1 [id number]/15/2021.TECHNIQUEAP view of the chestFINDINGSThe cardiac and mediastinal contours are within normal limits. Dense left lower lung nodule measuring 9 mm likely a calcified granuloma. Background of COPD. The lungs are otherwise clear without focal consolidation or segmental collapse. No pleural effusion or pneumothorax.IMPRESSIONNo acute pulmonary process.Electronically signed by: Curly Castillo (Sep 08, 2020 09:56:35)
[2020-09-08 12:27] VITALS: BP 114/66
== END 2020-09-08 14:35 | disposition home or self-care (01) ==
LOC: MED/SURG
PROVIDERS: ADMIT Internal Medicine; ATTEND Internal Medicine

== ENCOUNTER 2024-07-01 14:20 | Observation (INO) ==
[2024-07-01 16:35] VITALS: BMI 23.6
[2024-07-01] MEDS: NS 1,000 ML IV 1,000 ML IV SCH (16:55)
[2024-07-01] MEDS: GOLYTELY or GAVILYTE or Equivalent PO SCH (17:13)
[2024-07-01 17:21] LABS: BASOPHILS # (AUTO) 0.1 X10^3/uL (0.0-0.1); BASOPHILS % (AUTO) 1.3 % (0.2-1.0); EOSINOPHILS # (AUTO) 0.1 x10^3/uL (0.0-0.2); EOSINOPHILS % (AUTO) 1.6 % (0.9-2.9); HEMATOCRIT 37.1 % (36.0-47.0); HEMOGLOBIN 12.6 g/dL (12.0-16.0); LYMPHOCYTES # (AUTO) 1.8 X10^3/uL (1.3-2.9); LYMPHOCYTES % (AUTO) 28.1 % (21.0-51.0); MEAN CORPUSCULAR HEMOGLOBIN 29.5 pg (27.0-34.0); MEAN CORPUSCULAR VOLUME 86.6 fL (80.0-100.0); MEAN PLATELET VOLUME 8.2 fL (7.4-11.0); MONOCYTES # (AUTO) 0.5 x10^3/uL (0.3-0.8); MONOCYTES % (AUTO) 8.1 % (0.0-13.0); NEUTROPHILS # (AUTO) 3.9 x10^3/uL (2.2-4.8); NEUTROPHILS % (AUTO) 60.9 % (42.0-75.0); PLATELET COUNT 220 X10^3/uL (150.0-450.0); RED BLOOD COUNT 4.28 X10^6/uL (3.5-5.4); RED CELL DISTRIBUTION WIDTH 13.8 % (11.6-16.5); WHITE BLOOD COUNT 6.3 X10^3/uL (3.6-10.0)
[2024-07-01 17:22] LABS: ALANINE AMINOTRANSFERASE 25 Units/L (12-78); ALBUMIN 3.6 g/dL (3.4-5.0); ALKALINE PHOSPHATASE 75 Units/L (46-116); AMYLASE 78 Units/L (25-115); ASPARTATE AMINO TRANSFERASE 18 Units/L (15-37); BLOOD UREA NITROGEN 6 mg/dL (7-18); CALCIUM 8.6 mg/dL (8.5-10.1); CARBON DIOXIDE 27.7 mmol/L (21-32); CHLORIDE 107 mmol/L (98-107); GLUCOSE 89 mg/dL (65-99); LIPASE 20 Units/L (16-77); POTASSIUM 3.8 mmol/L (3.5-5.1); SODIUM 143 mmol/L (136-145); TOTAL PROTEIN 6.5 g/dL (6.4-8.2); eGFR NON BLACK RACES > 60 (>60)
[2024-07-01] MEDS: ZOFRAN INJ 4 MG VIAL IVP PRN (17:55)
[2024-07-01] MEDS ORDERED: PROVENTIL NEB TX 0.083% 2.5MG/ 3ML NEB PRN (17:57)
[2024-07-01] MEDS: MORPHINE SULFATE INJ 2 MG INJ IVP PRN (18:03)
[2024-07-01] MEDS: K-DUR TAB 20 MEQ PO SCH (18:58)
[2024-07-01] MEDS ORDERED: CONSULT PHARMACY - POTASSIUM & MAGNESIUM XX SCH (19:00)
[2024-07-01 19:32] LABS: BILIRUBIN,URINE NEGATIVE (NEGATIVE); BLOOD/HEMOGLOBIN,URINE 1+ (NEGATIVE); GLUCOSE, URINE NEGATIVE (NEGATIVE); KETONES,URINE NEGATIVE (NEGATIVE); LEUKOCYTE ESTERASE ,URINE NEGATIVE (NEGATIVE); NITRITES,URINE NEGATIVE (NEGATIVE); PROTEIN,URINE NEGATIVE (NEGATIVE); UROBILINOGEN,URINE NORMAL (NORMAL)
[2024-07-01 19:40] LABS: APPEARANCE,URINE CLEAR (CLEAR); BACTERIA,URINE NEGATIVE /HPF (NEGATIVE); COLOR,URINE PALE YELLOW (YELLOW); RBC,URINE 0-2 /HPF (0-3); SQUAMOUS EPITHELIAL CELL,UR RARE /HPF (NEGATIVE)
[2024-07-01] MEDS: NEURONTIN TAB 600 MG PO SCH (20:29)
[2024-07-01] MEDS: ABILIFY PO SCH (20:30)
[2024-07-01] MEDS: COREG TAB 6.25 MG PO SCH (20:37)
[2024-07-02 05:04] LABS: BASOPHILS # (AUTO) 0.1 X10^3/uL (0.0-0.1); BASOPHILS % (AUTO) 1.2 % (0.2-1.0); EOSINOPHILS # (AUTO) 0.1 x10^3/uL (0.0-0.2); EOSINOPHILS % (AUTO) 2.1 % (0.9-2.9); HEMATOCRIT 32.5 % (36.0-47.0); HEMOGLOBIN 11.1 g/dL (12.0-16.0); LYMPHOCYTES # (AUTO) 1.5 X10^3/uL (1.3-2.9); LYMPHOCYTES % (AUTO) 30.8 % (21.0-51.0); MEAN CORPUSCULAR HEMOGLOBIN 29.6 pg (27.0-34.0); MEAN CORPUSCULAR HGB CONC 34.2 g/dL (33.0-35.0); MEAN CORPUSCULAR VOLUME 86.5 fL (80.0-100.0); MEAN PLATELET VOLUME 7.8 fL (7.4-11.0); MONOCYTES # (AUTO) 0.4 x10^3/uL (0.3-0.8); MONOCYTES % (AUTO) 7.9 % (0.0-13.0); NEUTROPHILS # (AUTO) 2.7 x10^3/uL (2.2-4.8); PLATELET COUNT 189 X10^3/uL (150.0-450.0); RED BLOOD COUNT 3.76 X10^6/uL (3.5-5.4); RED CELL DISTRIBUTION WIDTH 13.7 % (11.6-16.5); WHITE BLOOD COUNT 4.7 X10^3/uL (3.6-10.0)
[2024-07-02 05:15] LABS: ALANINE AMINOTRANSFERASE 24 Units/L (12-78); ALKALINE PHOSPHATASE 62 Units/L (46-116); ASPARTATE AMINO TRANSFERASE 18 Units/L (15-37); BLOOD UREA NITROGEN 6 mg/dL (7-18); CARBON DIOXIDE 29.1 mmol/L (21-32); CHLORIDE 110 mmol/L (98-107); COR CA(FOR HYPOALB) 8.8 mg/dL (8.5-10.1); CREATININE 0.84 mg/dL (0.55-1.02); GLUCOSE 95 mg/dL (65-99); POTASSIUM 4.2 mmol/L (3.5-5.1); SODIUM 146 mmol/L (136-145); TOTAL PROTEIN 5.6 g/dL (6.4-8.2); eGFR NON BLACK RACES > 60 (>60)
[2024-07-02 05:33] LABS: PLATELET MORPHOLOGY COMMENT NORMAL (NORMAL)
--- NOTE | 2024-07-02 07:37 | RAD ---
EXAM: KUB HISTORY: Abdominal pain, constipation COMPARISON: 11/15/2023 FINDINGS: Abdominal gas pattern is nonspecific and nonobstructive. No abnormal masses or abnormal calcificat ions are identified. There is a mild amount of stool present in the cecum and proximal ascending col on. Regional skeleton is intact IMPRESSION: Nonspecific, nonobstructive bowel gas pattern A large amount of stool is not identified THIS IS AN ELECTRONICALLY VERIFIED FINAL REPORT 07/02/2024 7:34 AM - Electronically signed by Ayaan Dias MD
[2024-07-02] MEDS ORDERED: LEXAPRO ONE (08:47)
[2024-07-02] MEDS: LEXAPRO PO SCH (08:55)
[2024-07-02] MEDS: LOVENOX INJ 40 MG SYR SC SCH (08:56)
[2024-07-02] MEDS: CIPRO IV 400 MG PREMIX* 400 MG/200 ML IV.SOLN. IV SCH (09:33)
--- NOTE | 2024-07-02 20:08 | DR.H&P ---
H&P History & Physical for Day of: H&P Date: 07/02/24 Chief Complaint Chief Complaint: abdominal pain, constipation History of Present Illness History of Present Illness: PT IS 48 WF, DIRECT ADMIT FROM DR UPTON OFFICE WITH LOWER ABDOMINAL PAIN AND CONSTIPATION. PT REPORTS LOWER ABDOMINAL PAIN WITH RECTAL PRESSURE. PT REPORTS LAST COLONOSCOPY <[address] UPTON. PT DENIES ANY FLU LIKE ILLNESS, CP OR SOB. 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 Additional Surgical History: Hernia repair Family History Family Medical History: Cancer Social History Alcohol Use: None Drug Use: None Medications Home Medications: Home Medications Medication Instructions Recorded Confirmed Type aripiprazole 15 mg tablet 15 mg PO HS 08/26/20 07/01/24 History gabapentin 600 mg tablet 300 mg PO BID 08/26/20 07/01/24 History alendronate 70 mg tablet 70 mg PO QWEEK 07/01/24 07/01/24 History aspirin 81 mg tablet,delayed 81 mg PO QDAY 07/01/24 07/01/24 History release atorvastatin 40 mg tablet 40 mg PO QDAY 07/01/24 07/01/24 History carvedilol 6.25 mg tablet 6.25 mg PO BID 07/01/24 07/01/24 History dicyclomine 20 mg tablet 20 mg PO QID 07/01/24 07/01/24 History docusate sodium 100 mg capsule 200 mg PO QDAY constipation 07/01/24 07/01/24 History escitalopram oxalate 10 mg tablet 10 mg PO QDAY 07/01/24 07/01/24 History lamotrigine 25 mg tablet 50 mg PO QDAY 07/01/24 07/01/24 History tizanidine 4 mg tablet 4 mg PO TID 07/01/24 07/01/24 History Allergies Allergies Allergy/AdvReac Type Severity Reaction Status Date / Time No Known Drug Allergies Allergy Verified 08/26/20 17:04 Labs 07/02/24 04:38 07/02/24 04:38 Labs: 07/01/24 19:00 Urine,Clean Catch Urine Culture - Preliminary Laboratory WBC 4.7 X10^3/uL (3.6-10.0) 07/02/24 04:38 RBC 3.76 X10^6/uL (3.5-5.4) 07/02/24 04:38 Hgb 11.1 g/dL (12.0-16.0) L 07/02/24 04:38 Hct 32.5 % (36.0-47.0) L 07/02/24 04:38 MCV 86.5 fL (80.0-100.0) 07/02/24 04:38 MCH 29.6 pg (27.0-34.0) 07/02/24 04:38 MCHC 34.2 g/dL (33.0-35.0) 07/02/24 04:38 RDW 13.7 % (11.6-16.5) 07/02/24 04:38 Plt Count 189 X10^3/uL (150.0-450.0) 07/02/24 04:38 Plt Count Comment Adequate (ADEQUATE) 07/02/24 04:38 MPV 7.8 fL (7.4-11.0) 07/02/24 04:38 Neut % (Auto) 58.0 % (42.0-75.0) 07/02/24 04:38 Lymph % (Auto) 30.8 % (21.0-51.0) 07/02/24 04:38 Whiteside % (Auto) 7.9 % (0.0-13.0) 07/02/24 04:38 Eos % (Auto) 2.1 % (0.9-2.9) 07/02/24 04:38 Baso % (Auto) 1.2 % (0.2-1.0) H 07/02/24 04:38 Neut # (Auto) 2.7 x10^3/uL (2.2-4.8) 07/02/24 04:38 Lymph # (Auto) 1.5 X10^3/uL (1.3-2.9) 07/02/24 04:38 Whiteside # (Auto) 0.4 x10^3/uL (0.3-0.8) 07/02/24 04:38 Eos # (Auto) 0.1 x10^3/uL (0.0-0.2) 07/02/24 04:38 Baso # (Auto) 0.1 X10^3/uL (0.0-0.1) 07/02/24 04:38 Absolute Nucleated RBC 0.0 /100WBC 07/02/24 04:38 Total Counted 100 07/02/24 04:38 Neutrophils % (Manual) 64 % (39-76) 07/02/24 04:38 Lymphocytes % (Manual) 31 % (13-43) 07/02/24 04:38 Monocytes % (Manual) 4 % (4-9) 07/02/24 04:38 Eosinophils % (Manual) 1 % (0-6) 07/02/24 04:38 Plt Morphology Comment Normal (NORMAL) 07/02/24 04:38 RBC Morphology Normal (NORMAL) 07/02/24 04:38 Sodium 146 mmol/L (136-145) H 07/02/24 04:38 Corrected Sodium TNP 07/02/24 04:38 Potassium 4.2 mmol/L (3.5-5.1) 07/02/24 04:38 Chloride 110 mmol/L (98-107) H 07/02/24 04:38 Carbon Dioxide 29.1 mmol/L (21-32) 07/02/24 04:38 BUN 6 mg/dL (7-18) L 07/02/24 04:38 Creatinine 0.84 mg/dL (0.55-1.02) 07/02/24 04:38 Est GFR (MDRD) Af Amer > 60 (>60) 07/02/24 04:38 Est GFR (MDRD) Non-Af > 60 (>60) 07/02/24 04:38 Glucose 95 mg/dL (65-99) 07/02/24 04:38 Calcium 8.0 mg/dL (8.5-10.1) L 07/02/24 04:38 Corrected Calcium 8.8 mg/dL (8.5-10.1) 07/02/24 04:38 Magnesium 2.0 mg/dL (2.0-2.9) 07/02/24 04:38 Total Bilirubin 0.30 mg/dL (0.2-1.0) 07/02/24 04:38 AST 18 Units/L (15-37) 07/02/24 04:38 ALT 24 Units/L (12-78) 07/02/24 04:38 Alkaline Phosphatase 62 Units/L (46-116) 07/02/24 04:38 Total Protein 5.6 g/dL (6.4-8.2) L 07/02/24 04:38 Albumin 3.0 g/dL (3.4-5.0) L 07/02/24 04:38 Globulin 2.6 g/dL (2.5-4.5) 07/02/24 04:38 Albumin/Globulin Ratio 1.2 Ratio (1.1-2.1) 07/02/24 04:38 Amylase 78 Units/L (25-115) 07/01/24 16:59 Lipase 20 Units/L (16-77) 07/01/24 16:59 Specimen Type Clean catch urine 07/01/24 19:00 Urine Color Pale yellow (YELLOW) 07/01/24 19:00 Urine Appearance Clear (CLEAR) 07/01/24 19:00 Urine pH 6.0 (5.0 - 8.0) 07/01/24 19:00 Ur Specific Equality 1.015 (1.000-1.030) 07/01/24 19:00 Urine Protein Negative (NEGATIVE) 07/01/24 19:00 Urine Glucose (UA) Negative (NEGATIVE) 07/01/24 19:00 Urine Ketones Negative (NEGATIVE) 07/01/24 19:00 Urine Blood 1+ (NEGATIVE) 07/01/24 19:00 Urine Nitrite Negative (NEGATIVE) 07/01/24 19:00 Urine Bilirubin Negative (NEGATIVE) 07/01/24 19:00 Urine Urobilinogen Normal (NORMAL) 07/01/24 19:00 Ur Leukocyte Esterase Negative (NEGATIVE) 07/01/24 19:00 Urine RBC 0-2 /HPF (0-3) 07/01/24 19:00 Urine WBC 0-2 /HPF (0-5) 07/01/24 19:00 Ur Squamous Epith Cells Rare /HPF (NEGATIVE) 07/01/24 19:00 Urine Bacteria Negative /HPF (NEGATIVE) 07/01/24 19:00 Ur Culture Indicated? Yes/culture set up 07/01/24 19:00 Review of Systems Constitutional: No Symptoms Reported Eyes: No Symptoms Reported ENT: No Symptoms Reported Respiratory: No Symptoms Reported Cardiovascular: No Symptoms Reported Gastrointestinal: Abdominal Pain and Constipation Genitourinary: No Symptoms Reported Musculoskeletal: No Symptoms Reported Skin: No Symptoms Reported Neurological: No Symptoms Reported Physical Exam Vital Signs: Vital Signs Temperature 98.1 F Pulse Rate [Left Brachial] 54 Respiratory Rate 18 Blood Pressure [Left Arm] 130/60 O2 Sat by Pulse Oximetry 95 Oriented: Normal Eyes: Normal Ear: Normal Nose: Normal Throat: Normal Respiratory: Clear Throughout Cardiovascular: Normal : Normal Auscultation: Bowel Sounds: Increased Palpation: Normal Tenderness: RLQ and LLQ Skin: Normal Musculoskeletal: Normal Psychiatric: Anxiety Affect: Normal Speech Pattern: Clear and Appropriate Assessment/Plan (1) Colitis: Status: Acute Plan: ABD ON ADMISSION IV HYDRATION, PAIN CONTROL LAXITIVE THERAPY VERIFY AND RESUME HOME MEDICATIONS CT ABD PELVIS WITH CONTRAST IN THE AM (2) Constipation: Status: Acute
[2024-07-03 05:30] LABS: BASOPHILS % (AUTO) 0.7 % (0.2-1.0); EOSINOPHILS # (AUTO) 0.1 x10^3/uL (0.0-0.2); EOSINOPHILS % (AUTO) 2.1 % (0.9-2.9); HEMATOCRIT 32.5 % (36.0-47.0); HEMOGLOBIN 11.1 g/dL (12.0-16.0); LYMPHOCYTES # (AUTO) 1.2 X10^3/uL (1.3-2.9); LYMPHOCYTES % (AUTO) 28.2 % (21.0-51.0); MEAN CORPUSCULAR HEMOGLOBIN 29.6 pg (27.0-34.0); MEAN PLATELET VOLUME 8.4 fL (7.4-11.0); MONOCYTES # (AUTO) 0.3 x10^3/uL (0.3-0.8); MONOCYTES % (AUTO) 7.1 % (0.0-13.0); NEUTROPHILS # (AUTO) 2.6 x10^3/uL (2.2-4.8); NEUTROPHILS % (AUTO) 61.9 % (42.0-75.0); PLATELET COUNT 183 X10^3/uL (150.0-450.0); RED BLOOD COUNT 3.74 X10^6/uL (3.5-5.4); RED CELL DISTRIBUTION WIDTH 13.8 % (11.6-16.5); WHITE BLOOD COUNT 4.3 X10^3/uL (3.6-10.0)
[2024-07-03 05:43] LABS: ALANINE AMINOTRANSFERASE 24 Units/L (12-78); ALBUMIN 2.9 g/dL (3.4-5.0); ALKALINE PHOSPHATASE 61 Units/L (46-116); ASPARTATE AMINO TRANSFERASE 17 Units/L (15-37); BLOOD UREA NITROGEN 5 mg/dL (7-18); CALCIUM 8.4 mg/dL (8.5-10.1); CARBON DIOXIDE 27.3 mmol/L (21-32); CHLORIDE 109 mmol/L (98-107); COR CA(FOR HYPOALB) 9.3 mg/dL (8.5-10.1); CREATININE 0.75 mg/dL (0.55-1.02); GLUCOSE 93 mg/dL (65-99); POTASSIUM 3.7 mmol/L (3.5-5.1); SODIUM 145 mmol/L (136-145); TOTAL PROTEIN 5.6 g/dL (6.4-8.2); eGFR NON BLACK RACES > 60 (>60)
[2024-07-03] MEDS ORDERED: CONSULT PHARMACY - POTASSIUM & MAGNESIUM XX SCH (08:00)
[2024-07-03] MEDS: K-DUR TAB 20 MEQ PO SCH (08:16)
[2024-07-03] MEDS: LEXAPRO ONE (08:21)
[2024-07-03 11:01] VITALS: BP 118/56; PULSE 63; RESP 21; TEMP 98.3; O2SAT 97
== END 2024-07-03 10:55 | disposition home or self-care (01) ==
LOC: MED/SURG
PROVIDERS: ADMIT Internal Medicine; ATTEND Internal Medicine
DX: R10.32 Left lower quadrant pain; K59.09 Other constipation; Z79.899 Other long term (current) drug therapy; E83.42 Hypomagnesemia; I10 Essential (primary) hypertension; J44.9 Chronic obstructive pulmonary disease, unspecified; E87.0 Hyperosmolality and hypernatremia; F41.8 Other specified anxiety disorders; K52.89 Other specified noninfective gastroenteritis and colitis